=== PATIENT | female | born 1940 | race Caucasian/White ===

== ENCOUNTER 2019-04-06 06:16 | Inpatient (IN) | payer OTHER ==
[2019-03-27 18:21] VITALS: BMI 30.3
[~2019-04-06] VITALS: Ht 152.4 cm; Wt 69.7 kg
[2019-04-06] VITALS (41 sets, daily range): BP systolic 83–158; BP diastolic 47–80; PULSE 11–130; RESP 9–20; Ht 152.4 cm; Wt 69.7 kg
[~2019-04-06 06:16] MED LIST: ACETAMINOPHEN 1000MG/100ML IV 100 ML IVPB SCH; CEFAZOLIN 2 GM/50 ML (PMX) 50 ML (FOR WT < 120 KG) IVPB ONE; DEXAMETHASONE 4 MG/ML 1 ML INJ IV ONE; GLIM1TAB2 PO; LISI-471 PO; METF500T24 PO; TRANEXAMIC ACID 1GM/100ML(PMX) 100 ML AT CLOSURE X1 IVPB ONE; TRANEXAMIC ACID 1GM/100ML(PMX) 100 ML AT INCISION X1 IVPB ONE
[2019-04-06] MEDS: LACTATED RINGER'S 1,000 ML IV SCH ×5 (09:00→22:00)
[2019-04-06] MEDS ORDERED: POLYMYXIN B 500000 UNIT INJ ONE (10:10)
[2019-04-06] MEDS ORDERED: METOCLOPRAMIDE 10 MG INJ ONE (10:11)
[2019-04-06] MEDS ORDERED: morphine SULFATE/PF (10 MG/10 ML) INJ ONE (10:11)
[2019-04-06] MEDS ORDERED: ONDANSETRON 4 MG INJ ONE ×2 (10:11→16:13)
[2019-04-06] MEDS ORDERED: PROPOFOL 20 ML ONE (10:11)
[2019-04-06] MEDS ORDERED: DEXAMETHASONE 4 MG/ML 5 ML INJ ONE (10:48)
[2019-04-06] MEDS ORDERED: CEFAZOLIN 1 GM INJ ONE (10:48)
[2019-04-06] MEDS ORDERED: ROCURONIUM 50 MG INJ ONE (10:48)
[2019-04-06] MEDS ORDERED: TRANEXAMIC ACID 1GM/100ML(PMX) 100 ML ONE (11:08)
[2019-04-06] MEDS ORDERED: BUPIVACAINE 0.25% (MPF) 30 ML INJ ONE ×2 (11:19→11:29)
[2019-04-06] MEDS ORDERED: BACITRACIN 50000 UNITS INJ IRR ONE (11:33)
[2019-04-06] MEDS ORDERED: PHENYLephrine (100 MCG/ML) 10ML SYG ONE (11:35)
[2019-04-06] MEDS ORDERED: EPHEDrine 25 MG/5 ML SYG ONE (11:35)
[2019-04-06] MEDS ORDERED: ROPIVACAINE 0.2% 20 ML VIAL ONE (12:49)
[2019-04-06] MEDS ORDERED: MAGNESIUM HYDROXIDE 30ML CUP PO PRN (13:30)
[2019-04-06] MEDS ORDERED: NACL 0.9% 3 ML SYG IV SCH (13:30)
[2019-04-06] MEDS ORDERED: KETOROLAC 15 MG INJ IV PRN (13:30)
[2019-04-06] MEDS ORDERED: NALOXONE (0.4 MG/ML) INJ IV PRN (13:30)
[2019-04-06] MEDS ORDERED: DEXTROSE 50% 50 ML SYRINGE IV PRN ×2 (17:00)
[2019-04-06] MEDS ORDERED: GLUCAGON 1 MG INJ IM PRN (17:00)
[2019-04-06] MEDS ORDERED: GLUCOSE GEL 15 GRAM TUBE BUCCAL PRN (17:00)
[2019-04-06] MEDS ORDERED: GLUCOSE GEL 15 GRAM TUBE PO PRN ×2 (17:00)
[2019-04-06] MEDS: ACCU-CHEK XX SCH ×2 (17:25→21:00)
[2019-04-06] MEDS: ONDANSETRON 4 MG INJ IV PRN (17:34)
[2019-04-06] MEDS: INSULIN ASPART [NOVOLOG] 3 ML PEN SC SCH ×2 (19:41→22:23)
[2019-04-06] MEDS: CEFAZOLIN 2 GM/50 ML (PMX) 50 ML IVPB SCH (19:41)
[2019-04-06] MEDS: GABAPENTIN 100 MG CAP PO SCH (21:06)
[2019-04-07 00:24] VITALS: BP 99/81; PULSE 88; RESP 18
[2019-04-07] MEDS: CEFAZOLIN 2 GM/50 ML (PMX) 50 ML IVPB SCH ×2 (03:14→11:00)
[2019-04-07] MEDS: LACTATED RINGER'S 1,000 ML IV SCH ×2 (06:00→14:19)
[2019-04-07 07:45] VITALS: BP 107/53; PULSE 65; RESP 18
[2019-04-07] MEDS ORDERED: GLIMEPIRIDE 2 MG TAB PO SCH (08:00)
[2019-04-07] MEDS: ACCU-CHEK XX SCH ×4 (08:22→21:00)
[2019-04-07] MEDS: metFORMIN 500 MG TAB PO SCH (08:24)
[2019-04-07] MEDS: DOCUSATE SODIUM 100 MG CAP PO SCH ×2 (08:24→20:34)
[2019-04-07] MEDS: GABAPENTIN 100 MG CAP PO SCH ×3 (08:24→20:34)
[2019-04-07] MEDS: LISINOPRIL 20 MG TAB PO SCH (08:24)
[2019-04-07] MEDS: INSULIN ASPART [NOVOLOG] 3 ML PEN SC SCH ×4 (08:26→20:36)
[2019-04-07] MEDS ORDERED: ASPIRIN (EC) 81 MG TAB PO SCH (09:00)
[2019-04-07] MEDS: [UNRECOGNIZED DRUG - REMARK] XX SCH ×2 (09:00→17:00)
[2019-04-07] MEDS: oxyCODONE 5 MG TAB PO PRN ×3 (10:05→18:03)
[2019-04-07] MEDS ORDERED: CEFAZOLIN 2 GM/50 ML (PMX) 50 ML IVPB SCH (12:30)
[2019-04-07] MEDS ORDERED: ONDANSETRON 4 MG INJ IV PRN (13:30)
[2019-04-07 14:09] VITALS: BP 115/64; PULSE 63; RESP 18
[2019-04-07] MEDS: ASPIRIN 81 MG TAB PO SCH (18:02)
[2019-04-07 19:47] VITALS: BP 120/73; PULSE 73; RESP 18
[2019-04-08] MEDS: [UNRECOGNIZED DRUG - REMARK] XX SCH ×2 (01:00→09:00)
[2019-04-08] MEDS: oxyCODONE 5 MG TAB PO PRN ×3 (01:25→08:12)
[2019-04-08 02:36] VITALS: BP 152/77; PULSE 83; RESP 18
[2019-04-08] MEDS ORDERED: PANTOPRAZOLE (EC) 40 MG TAB PO SCH (06:00)
[2019-04-08] MEDS: ACCU-CHEK XX SCH ×2 (07:20→11:10)
[2019-04-08 07:34] VITALS: BP 130/71; PULSE 84; RESP 18
[2019-04-08] MEDS: ASPIRIN 81 MG TAB PO SCH (08:11)
[2019-04-08] MEDS: GABAPENTIN 100 MG CAP PO SCH ×2 (08:11→13:25)
[2019-04-08] MEDS: DOCUSATE SODIUM 100 MG CAP PO SCH (08:11)
[2019-04-08] MEDS: metFORMIN 500 MG TAB PO SCH (08:11)
[2019-04-08] MEDS: INSULIN ASPART [NOVOLOG] 3 ML PEN SC SCH ×2 (08:27→12:41)
[2019-04-08] MEDS: ONDANSETRON 4 MG INJ IV PRN (08:39)
[2019-04-08] MEDS: LISINOPRIL 20 MG TAB PO SCH (09:46)
== END 2019-04-08 14:21 | disposition home health service (06) | DRG 468 ==
LOC: REC 07:44 → MS1 16:55
PROVIDERS: ADMIT Orthopaedic Surgery; ATTEND Orthopaedic Surgery
PROC: 0SRD069 Replacement of Left Knee Joint with Oxidized Zirconium on Polyethylene Synthetic Substitute, Cemented, Open Approach (ICD-10-PCS; 2019-04-06)
PROC: 0SPD0JZ Removal of Synthetic Substitute from Left Knee Joint, Open Approach (ICD-10-PCS; principal; 2019-04-06 10:30)
DX: T84.033A Mechanical loosening of internal left knee prosthetic joint, initial encounter (principal); Y84.8 Other medical procedures as the cause of abnormal reaction of the patient, or of later complication, without mention of misadventure at the time of the procedure; Z96.652 Presence of left artificial knee joint; I10 Essential (primary) hypertension; E11.9 Type 2 diabetes mellitus without complications; K29.70 Gastritis, unspecified, without bleeding; Y92.9 Unspecified place or not applicable; Z79.4 Long term (current) use of insulin
CPT/HCPCS: 73560; 80048; 82962; 85025; 86850; 86900; 86901; 87070; 87075; 87081; 88300; 97116; 97162; 97530; C1713; C1776; J0131; J0171; J0690; J0735; J1100; J1815; J1885; J2274; J2370; J2405; J2765; J2795; J7120